=== PATIENT | female | born 1955 | race Caucasian/White ===

== ENCOUNTER → 2018-06-28 | Outpatient (CLI) | payer BC, OTHER ==
--- NOTE | 2018-06-29 16:03 | SLE ---
[facility] [place] [address] POLYSOMNOGRAPHY STUDY Name: RADHA HERZOG Room #: REG [facility]#: [id number] Admission: 06/28/18 ������������������ Attend Phys: Jamil Schulte MD Discharge: ������������������ Date of : 59 Report #: [id number] THIS REPORT FOR: //name// CC: Jamil Terry DO DATE OF SERVICE: 06/28/2018 SLEEP STUDY ATTENDING PHYSICIAN: Kimmie Terry DO. The patient is a 63-year-old who weighs 157 pounds with a BMI of 28.7. The patient has severe subjective hypersomnia with an [place] score of 18. The patient underwent diagnostic sleep study followed by MSLT. The results of diagnostic study are reported here. During the night study, the patient spent 527 minutes in bed and slept for 483 minutes with a sleep efficiency of 91.7%. Sleep latency was 2.7 minutes with a REM latency of 74.7 minutes. Overall sleep architecture showed increased stage 1 and stage 2 sleep, normal N3 sleep and reduced REM sleep, which was 13.3% of the total sleep time. During the night study, the patient had 1 obstructive apnea, no mixed or central apneas and 7 hypopneas. The patient's apnea-hypopnea index for the entire night was only 1 per hour. The patient's REM index was 0.9 per hour and a supine index of 1.3 per hour. EKG monitoring revealed normal sinus rhythm. Average heart rate 68 beats per minute. No sustained arrhythmias observed. PLMS were seen at an index of 22 per hour and 4.7 per hour caused EEG arousals. Nocturnal oximetry study revealed an average oxygen saturation of 96% with a lowest of 87%. Only 0.4 minutes were spent in oxygen saturation less than 89%. Due to low AHI, the patient did not meet the split night criteria for CPAP initiation. IMPRESSION: 1. No clinically significant sleep disordered breathing. The patient's AHI for the entire night was 1 per hour. 2. No clinically significant nocturnal hypoxia. 3. Mild to moderate periodic limb movements at an index of 22 per hour and 4.7 per hour caused EEG arousals. [facility] [address] [place] [address] POLYSOMNOGRAPHY STUDY Name: RADHA HERZOG Room #: REG [facility]#: [id number] Admission: 06/28/18 ������������������ Attend Phys: Jamil Schulte MD Discharge: ������������������ Date of : 59 Report #: [id number] RECOMMENDATIONS: 1. The patient did not meet the criteria for CPAP initiation due to no clinically significant sleep disordered breathing. 2. The patient has severe subjective hypersomnia. The patient underwent multiple sleep latency test the next day, which will be reported separately to rule out other disorders which can explain the patient's symptoms such as narcolepsy or idiopathic hypersomnia. 3. Avoid TELECOMMUNICATION SYSTEMS DESIGNER depressants. 4. Weight loss is advised. 5. Caution regarding driving until the patient's hypersomnia is resolved. 6. PLMS does not need to be treated unless the patient has symptoms of restless legs during the day. ��������������������������������������������� <ELECTRONICALLY SIGNED> ���������������������������������������� By: Jamil Schulte MD ��������������������������������������������� 06/29/18 1603 [id number] Jamil Schulte MD /nt
[2018-06-29 19:36] LABS: AMP/METHAMP Negative (Negative); BARBITURATES Negative (Negative); BENZODIAZEPINES Negative (Negative); COCAINE Negative (Negative); METHADONE Negative (Negative); OPIATES Negative (Negative); PCP Negative (Negative)
--- NOTE | 2018-07-04 07:46 | SLE ---
[facility] [place] [address] POLYSOMNOGRAPHY STUDY Name: RADHA HERZOG Room #: REG [facility].#: [id number] Admission: 06/28/18 ������������������ Attend Phys: Jamil Schulte MD Discharge: ������������������ Date of : 59 Report #: [id number] THIS REPORT FOR: //name// CC: Jamil Morales DATE OF SERVICE: 06/29/2018 MULTIPLE SLEEP LATENCY TEST ATTENDING PHYSICIAN: Dr. Kimmie Terry. The patient is a 63-year-old female who has a longstanding history of excessive daytime somnolence. The patient's [place] score was 18. The patient weighs 157 pounds with a BMI of 28.7. The patient underwent multiple sleep latency tests to rule out the possibility of narcolepsy versus idiopathic hypersomnia. The night prior to multiple sleep latency tests the patient underwent full night polysomnogram. The patient's sleep efficiency was 91.7%. The patient's AHI was only 1.1 per hour. The patient had [id number] PLMS. The patient also had a home sleep study at [facility] on 03/23/2018 and her AHI at that time was also only 2.3 per hour. The patient also had a sleep study on 09/21/2000 and her AHI at that time was also 0.1 per hour. Multiple latency tests were performed. Standard protocol was used. The patient was allowed opportunity for 5 naps. During the first nap session, the patient's sleep latency was 5 minutes and 42 seconds. The patient did have a REM sleep. During the second nap, the patient's sleep latency was 3 minutes and 54 seconds. There was no REM sleep observed. During the third nap, the patient's sleep latency was 1 minute and 54 seconds and no REM sleep was observed. During the fourth nap, the patient's sleep latency was 2 minutes and 6 seconds and no REM sleep was observed and during the last and the fifth nap, the patient's sleep latency was 3 minutes and 42 seconds and no REM sleep was observed. Sleep was observed on all 5 naps with a mean sleep latency of 3 min and 27 sec and 1 REM sleep was observed, which was in the first nap. IMPRESSION: Highly abnormal multiple sleep latency tests consistent with pathological hypersomnia with a mean sleep latency of only 3 minutes and 27 seconds with 1 REM sleep. The patient's REM latency the night prior to the MSLT was 74 minutes. 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 It does not meet all the MSLT criteria to confirm narcolepsy which requires 2 REM sleep periods. RECOMMENDATIONS: 1. As discussed above, although the patient does not meet all the criteria for [facility] [address] [place] [address] POLYSOMNOGRAPHY STUDY Name: RADHA HERZOG Room #: REG [facility]#: [id number] Admission: 06/28/18 ������������������ Attend Phys: Jamil Schulte MD Discharge: ������������������ Date of : 59 Report #: [id number] narcolepsy, but it should be strongly suspected. The patient had multiple sleep studies before and her AHI has always been less then 2/hr. 2. The patient would benefit from initiation of stimulant medication such as Provigil or Nuvigil 3. If clinical suspicion for narcolepsy continues to persist, then the patient can have a repeat MSLT in future. 4. Avoid CYBER SYSTEMS ADMINISTRATOR depressants. Currently, the patient does not take any. 5. Caution regarding driving until the patient's hypersomnia is resolved with the initiation of stimulant medications. 6. Consider consultation with board certified sleep specialist if clinically indicated. ��������������������������������������������� <ELECTRONICALLY SIGNED> ���������������������������������������� By: Jamil Schulte MD ��������������������������������������������� 07/04/1846 42 22 Jamil Schulte MD /nt
== END ==
LOC: SLEEPLAB 14:48
PROVIDERS: Internal Medicine Critical Care Medicine
DX: G47.61 Periodic limb movement disorder (principal); R53.83 Other fatigue